=== PATIENT | female | born 1975 | race Caucasian/White ===

== ENCOUNTER 2018-07-29 15:05 | Emergency (ER) | payer SELFPAY ==
[~2018-07-29] VITALS: Ht 162.6 cm; Wt 105.2 kg
[2018-07-29 15:45] VITALS: BP 208/97
[2018-07-29] MEDS ORDERED: cloNIDine HCL 0.1 MG TABLET PO ONE (15:45)
[2018-07-29] MEDS ORDERED: CLIN300C8 PO (16:19)
--- NOTE | 2018-07-29 16:21 | PHYS DOC ---
Past Medical History Past Medical History: Asthma Past Surgical History: Cholecystectomy Alcohol Use: None Drug Use: None Adult General Chief Complaint Chief Complaint: FACE PROBLEM HPI HPI Patient is a 43 year old female who presents with swelling to her right parotid gland. the patient had a similar incident a few years ago and was treated successfully with antibiotics. She denies fever, nausea or vomiting. She denies rashes, a foul taste, or dental pain. She has used OTC pain relievers with moderate relief. Review of Systems Review of Systems Constitutional: Denies fever or chills [] Eyes: Denies change in visual acuity, redness, or eye pain [] HENT: See history of present illness Respiratory: Denies cough or shortness of breath [] Cardiovascular: No additional information not addressed in HPI [] GI: Denies abdominal pain, nausea, vomiting, bloody stools or diarrhea [] Neurologic: Denies headache, focal weakness or sensory changes [] Endocrine: Denies polyuria or polydipsia [] All other systems were reviewed and found to be within normal limits, except as documented in this note. Current Medications Current Medications Current Medications Medications (Trade) Dose Ordered Sig/Rocael Start Time Stop Time Status Last Admin Dose Admin Clonidine HCl (Catapres) 0.1 mg 1X ONCE 07/29/18 15:45 07/29/18 15:46 DC 07/29/18 15:45 0.1 MG Allergies Allergies Allergies Coded Allergies Type Severity Reaction Last Updated Verified No Known Drug Allergies 07/29/18 No Physical Exam Physical Exam Constitutional: Well developed, well nourished, no acute distress, non-toxic appearance. [] HENT: Normocephalic, atraumatic, swelling to right parotid gland, oropharynx moist, no oral exudates, nose normal. [] Eyes: PERRLA, EOMI, conjunctiva normal, no discharge. [] Neck: Normal range of motion, no tenderness, supple, no stridor. [] Cardiovascular:Heart rate regular rhythm, no murmur [] Lungs & Thorax: Bilateral breath sounds clear to auscultation [] Neurologic: Alert and oriented X 3, normal motor function, normal sensory function, no focal deficits noted. [] Psychologic: Affect normal, judgement normal, mood normal. [] Current Patient Data Vital Signs Vital Signs Date Time Temp Pulse Resp B/P (MAP) Pulse Ox O2 Delivery O2 Flow Rate FiO2 07/29/18 16:20 99 07/29/18 15:45 94 208/97 07/29/18 15:12 97.9 20 Room Air 97.9 EKG EKG [] Radiology/Procedures Radiology/Procedures [] Course & Med Decision Making Course & Med Decision Making Pertinent Labs and Imaging studies reviewed. (See chart for details) [] Dragon Disclaimer Dragon Disclaimer This electronic medical record was generated, in whole or in part, using a voice recognition dictation system. Departure Departure Impression: Primary Impression: Parotitis Disposition: HOME, SELF-CARE Condition: STABLE Referrals: NO PCP (PCP) Patient Instructions: Parotitis, Salivary Stone Additional Instructions: Take the antibiotic as directed. Use lemon drops when necessary. Follow-up with your primary care provider in 4 days for recheck. If worsening return to the emergency department. Scripts Clindamycin Hcl (CLINDAMYCIN HCL) 300 Mg Capsule 1 CAP PO TID for parotitis, #30 CAP Prov: SHELIA BALTAZAR APRN 07/29/18 SHELIA BALTAZAR APRN July 29, 2018 16:21
== END 2018-07-29 16:25 | disposition home or self-care (01) ==
LOC: ER 15:05
DX: K11.20 Sialoadenitis, unspecified (principal); J45.909 Unspecified asthma, uncomplicated; Z90.49 Acquired absence of other specified parts of digestive tract
CPT/HCPCS: 99283